=== PATIENT | female | born 1975 | race Caucasian/White ===

== ENCOUNTER 2016-05-16 19:41 | Emergency (ER) ==
[2016-05-16] MEDS ORDERED: PHENERGAN IM ONE (20:18)
[2016-05-16] MEDS ORDERED: BENADRYL PO ONE (20:18)
[2016-05-16] MEDS ORDERED: TORADOL IM ONE (20:18)
--- NOTE | 2016-05-16 20:24 | PROVIDER DOCUMENTATION ---
HPI-General Adult - General Chief Complaint: Headache Stated Complaint: MIGRAINE,VOMITING Time Seen by Provider: 05/16/16 19:44 Source: patient Allergies/Adverse Reactions: Patient Allergies Allergy/AdvReac Type Severity Reaction Status Date / Time adhesive Allergy Verified 04/22/12 19:17 doxycycline Allergy Unknown Verified 04/19/12 02:26 Penicillins Allergy Unknown Verified 04/19/12 02:26 Home Medications: Home Medication List Medication Instructions Recorded Confirmed Last Taken Type Albuterol Sulfate [Proair Hfa] puff IH PRN 04/19/12 04/19/12 Unknown History Ipratropium [place] Neb [Atrovent 0.5 mg INH RTQ8H 04/19/12 04/19/12 Unknown History Neb] Clonazepam [Klonopin] 1 mg PO DAILY 05/16/16 05/16/16 Unknown History Lurasidone [Latuda] 40 mg PO DAILY 05/16/16 05/16/16 Unknown History - History of Present Illness -Gen Adult Nature of Presenting Problems: Pt. is 40 yof that presents with c/o migraine ANDREA that began about an hour ago. Pt. reports she is nauseated and the lights are bothering her eyes. Pt. denies any other symptoms at time of exam. Location of Pain/Injury: reports: head. denies: face, mouth, neck, chest, upper extremity, hand(s), abdomen, back, pelvis, genitalia, lower extremity, feet, upper body, lower body, generalized Pain Radiation: reports: no radiation Quality of Pain: reports: aching. denies: burning, cramping, dull, fullness, indigestion, pressure, sharp, stabbing, tearing, throbbing, tightness Severity: reports: moderate. denies: mild, severe Onset/Duration: reports: gradual, 1-3 hours ago Timing: reports: still present. denies: improving, gone now, resolved prior to arrival, intermittent, constant, changing over time, getting worse Context/Activities at Onset: reports: none. denies: recent emotional stress, recent physical stress, recent trauma history, possible bad food, out of country travel Modifying Factors: improves with: nothing Associated Symptoms: reports: headaches, nausea, vomiting. denies: anxiety, arm pain, back/neck pain, chest pain, constipation, cough, diaphoresis, diarrhea , dizziness, EENT symptoms, fatigue, fever/chills, genitourinary problems, heartburn, joint pain, loss of appetite, malaise, muscle aches, sinus congestion /drainage, rash, seizure, shortness of breath, sensory/motor loss, pain with inspiration, swelling/mass in abdomen, syncope, weakness, trouble walking Similar Symptoms Previously?: No Recently seen or treated by another doctor?: No Review of Systems - Adult - REVIEW OF SYSTEMS - ADULT Constitutional: reports: see HPI. denies: chills, fever, fatique Eyes: reports: see HPI. denies: discharge, blurred vision, double vision Ears, Nose, Mouth & Throat: reports: see HPI. denies: ear discharge, ear pain, hearing loss, sinus problem, nose pain, loose teeth, mouth/dental pain, throat pain, throat swelling Cardiovascular: reports: see HPI. denies: chest pain, irregular heart rate, orthopnea, syncope Respiratory: reports: see HPI. denies: chronic cough, cough, dyspnea on exertion, pleurisy, shortness of breath, wheezing Gastrointestinal: reports: see HPI, nausea, vomiting. denies: abdominal pain, hematemesis, diarrhea Genitourinary: reports: see HPI. denies: dysuria, discharge, hematuria, hesitency, urgency Musculoskeletal: reports: see HPI. denies: bone pain, joint pain, joint swelling, muscle aches, neck pain Integumentary: reports: see HPI. denies: hives, hair loss, mole changes, rash, skin thickening Neurological: reports: see HPI, headache/migraines. denies: ataxia, numbness, paresthesia, seizure, tremors Psychiatric: reports: see HPI. denies: anxiety, depression, emotional problems , insomnia, panic attacks, suicidal thoughts Past History - Adult - PAST MEDICAL HISTORY-ADULT Review of Records: reports: Old Records Reviewed, Nursing Assessment Review, Medications Reviewed, Social history reviewed & non-contributory. - IMMUNIZATION STATUS Childhood Immunizations: See Nurse Assessment Flu Vaccine: See Nurse Assessment - FAMILY HISTORY Family History: reviewed, not pertinent - SOCIAL HISTORY Smoking: cigarettes, greater than 1 pack/day Provider spent 3-5 mins advising pt. on dangers of tobacco.: Discussed the need to stop smoking. Physical Exam-General - PHYSICAL EXAM-ADULT Initial Vital Signs Reviewed: Yes - CONSTITUTIONAL General Appearance: alert, mild distress, obese. negative: thin, anxious, lethargic, slow to respond, obtunded, combative - EYES Eyes: PERRL/EOMI, pink conjunctivae. negative: conjuctival exudate, scleral icterus, subconjunctival hemorrhage - HEAD, EARS, NOSE, MOUTH & THROAT HENMT: normocephalic/atraumatic, moist mucous membranes. negative: angioedema, frontal tenderness, maxillary tenderness - NECK Neck: non-tender, full range of motion, supple, normal inspection. negative: lymphadenopathy, trachial deviation, thyromegaly - RESPIRATORY Respiratory: lungs clear, normal breath sounds. negative: crackles, rales, rhonchi, stridor, wheezing - CARDIOVASCULAR Cardiovascular: normal peripheral pulses, regular rate, rhythm, no edema, no JVD , no murmur. negative: extra beats, friction rub, irregularly irregular - CHEST (BREASTS) Chest/Breast: deferred - GASTROINTESTINAL (ABDOMEN) Abdominal Exam: normal bowel sounds, non tender, soft. negative: distended, guarding, rigid, rebound, tenderness, hernia, mass - GENITOURINARY Female Genitalia/Pelvic Exam: deferred Rectal Exam: deferred Hemoccult Exam: deferred - LYMPHATIC Lymphatic: no adenopathy. negative: axilla node tender, cervical node tenderness - MUSCULOSKELETAL Back Exam: normal inspection, no CVA tenderness, no vertebral tenderness. negative: ecchymosis, swelling, vertebral tenderness Extremity: normal range of motion, non-tender, normal gait, normal inspection. negative: deformity, erythema, inflammation, swelling, tenderness Peripheral Pulses: radial (R): 2+, radial (L): 2+ - SKIN Integumentary: normal color, normal turgor, warm/dry. negative: cyanosis, diaphoresis, ecchymosis, erythema, jaundice, mottled, pallor, petechiae, purpura , rash, swelling, tenderness - NEUROLOGIC Neurologic: grossly normal, no motor/sensory deficits. negative: aphasia, facial droop, focal weakness, motor weakness, sensory deficit - PSYCHIATRIC Psych/Mental Status: normal mood/affect, normal thought content, normal thought process, oriented x 3. negative: anxious, paranoid, tearful Progress - PLAN OF CARE/RESULTS Progress/Plan/Lab Results: Discussed plan of care with patient. Patient agrees with plan and verbalizes understanding. Vital Signs Temp Pulse Resp BP Pulse Ox 05/16/16 19:49 98 F 89 18 124/68 98 adhesive Allergy (Verified 04/22/12 19:17) tape doxycycline Allergy (Verified 04/19/12 02:26) Unknown Penicillins Allergy (Verified 04/19/12 02:26) Unknown Albuterol Sulfate [Proair Hfa] puff IH PRN 04/19/12 Ipratropium [place] Neb [Atrovent Neb] 0.5 mg INH RTQ8H 04/19/12 Clonazepam [Klonopin] 1 mg PO DAILY 05/16/16 Lurasidone [Latuda] 40 mg PO DAILY 05/16/16 Orders Category Date Time Status Diphenhydramine [Benadryl] Med 05/16/16 20:18 Discontinued 50 mg PO NOW ONE Ketorolac [Toradol] Med 05/16/16 20:18 Discontinued 60 mg IM NOW ONE Promethazine [Phenergan] Med 05/16/16 20:18 Discontinued 25 mg IM NOW ONE Departure - Departure Time of Disposition Order: 20:19 DIAGNOSIS: Migraine Qualifiers: Migraine type: unspecified Status migrainosus presence: without status migrainosus Intractability: not intractable Qualified Code(s): G43.909 - Migraine, unspecified, not intractable, without status migrainosus Disposition: HOME 01 Certified Medical Emergency: Emergent Condition: Stable Additional Instructions: Follow up with primary care physician Rest in a cool dark room Return to ED for any concerns or worsening of symptoms ED Follow Up Instructions: You have been treated by a care provider in the Emergency Department. These instructions are being provided to you so you can have an understanding of how to care for yourself upon discharge. Upon discharge from the Emergency Department, you are responsible for making arrangements for follow-up care by a physician of your choice. Take all prescribed medications as directed. Return to the Emergency Department immediately for any new or worsening symptoms. You may call the Physician Referral phone number at [phone] to obtain a list of Physicians who are taking new patients. Attestation - Physician/ [place] Attestation Patient care was provided by Advanced Practice Provider:: Yes Advanced Practice Provider:: Jesus Wolff Advanced Practice Provider documentation review:: The Mid-level provider documentation, treatment plan and medical decision making was reviewed by the physician who agrees with all treatment and medical decision making by the MLP.
[2016-05-16] MEDS ORDERED: BENADRYL ONE (20:27)
[2016-05-16 20:32] VITALS: BP 141/74
== END 2016-05-16 20:32 | disposition home or self-care (01) ==
LOC: P.ED 19:41
DX: G43.909 Migraine, unspecified, not intractable, without status migrainosus (principal); R51 Headache; R11.2 Nausea with vomiting, unspecified; E66.9 Obesity, unspecified; Z79.899 Other long term (current) drug therapy; F17.210 Nicotine dependence, cigarettes, uncomplicated; Z71.6 Tobacco abuse counseling
CPT/HCPCS: 96372; J1885; J2550